=== PATIENT | female | born 1970 | race Caucasian/White ===

== ENCOUNTER 2016-07-25 10:59 | Emergency (ER) | payer OTHER ==
--- NOTE | ~2016-07-25 | CT2 ---
[facility] A Service of [facility] RADIOLOGY TEXT RESULTS PATIENT: SHAWN SERRANO LOCATION: [facility] : 70 UNIT #: [id number] AGE: [address]: Luther Cantu MD SEX: F ORDER DR: [id number] [facility]. [place], [place] [address] [id number] E MR#: [id number] Acc #: [id number] NAME: SHAWN SERRANO : 1970 SEX: F STUDY DATE/TIME: 07/25/2016 12:43 UNIT: [facility] ROOM: STUDY DESCRIPTION: CT Abd and Pelv W Cont Attending Physician: Luther Cantu M.D. Ordering Physician: Luther Cantu M.D. MEDICAL IMAGING REPORT This report is preliminary unless electronic signature is present EXAM CT abdomen and pelvis with contrast INDICATIONS Generalized abdominal pain and periumbilical pain for the past 2 days. PROCEDURE Contrast-enhanced CT of the abdomen and pelvis 100 mL of Isovue-[id number] COMPARISON None TECHNIQUE This CT exam was performed with one or more of the following radiation dose reduction techniques: automatic control, adjustment of mA and/or kV according to patient size, and iterative reconstruction. FINDINGS ABDOMEN WITH CONTRAST: The included lung bases are clear. No liver or splenic mass. Kidneys adrenal glands pancreas unremarkable. Previous cholecystectomy. The bowel loops are nondilated. There is long segment thickening of the distal small bowel. There is some reactive fluid in the adjacent mesentery and extending into the pelvis. No evidence for obstruction. PELVIS WITH CONTRAST: Small amount of fluid in the pelvis. No aggressive appearing bone lesion. IMPRESSION 1. Long segment thickening and inflammatory change of the distal small bowel. Findings could reflect inflammatory bowel disease or distal enteritis. [facility] A Service [facility] RADIOLOGY TEXT RESULTS PATIENT: SHAWN SERRANO LOCATION: [facility] : 70 UNIT #: [id number] AGE: [address]: Luther Cantu MD SEX: F ORDER DR: 2. Reactive fluid in the adjacent mesentery and extending into the pelvis. No convincing evidence for an organized abscess or perforation. Dictated by... Jimmy Bolden M.D. THIS IS AN ELECTRONICALLY VERIFIED REPORT Jimmy Bolden M.D. at 07/27/2016 7:14 AM NANCIE/ismael TD: 07/25/2016 17:36 JOB #: [id number] MEDICAL IMAGING REPORT Page 1 of 1 COPY
[~2016-07-25 10:59] MED LIST: ALBUTEROL 0.5ML INH; ASPIRIN81 MG PO; DOXYCYCLINE PO; HALDOL PO; HYDROCHLOROTHIA25 MG PO; KCL PO; LASIX PO; LIPITOR40 MG PO; LISINOPRIL PO; LISINOPRIL30 MG PO; LOPRESSOR PO; METFORMIN PO; NORVASC PO; PREDNISONE PO
[2016-07-25 11:18] LABS: BASOPHIL# 0.1 X10e3 (0-0.3); BASOPHIL% 0.3 % (0-2.5); EOSINOPHIL# 0.5 X10e3 (0-0.7); HEMATOCRIT 55.7 % (35.0-45.0); HEMOGLOBIN 18.4 gm/dL (12.0-16.0); LYMPHOCYTE# 1.8 X10e3 (1.0-3.5); LYMPHOCYTE% 11.1 % (17.0-45.0); MEAN CELL VOLUME 82.8 FL (83-96); MEAN CORPUSCULAR HEMOGLOBIN 27.4 PG (28-34); MEAN CORPUSCULAR HGB CONC 33.1 g/dL (30-36); MEAN PLATELET VOLUME 9.1 FL (6.5-11.5); MONOCYTE# 1.3 X10e3 (0-1.0); MONOCYTE% 8.1 % (3.0-12.0); NEUTROPHIL# 12.4 X10e3 (1.5-7.1); NEUTROPHIL% 77.5 % (40-75); PLATELET COUNT 310 X10e3 (140-420); RED BLOOD COUNT 6.72 X10e (3.90-5.30); RED CELL DISTRIBUTION WIDTH 13.5 % (11.0-15.5); WHITE BLOOD COUNT 15.9 X10e3 (4.0-10.5)
[2016-07-25 11:21] LABS: DIFF IND YES
[2016-07-25 11:48] LABS: ALBUMIN SERUM 3.6 g/dL (3.5-5.0); BILIRUBIN, DIRECT 0.4 mg/dL (0.0-0.2); BILIRUBIN,INDIRECT 1.2 mg/dL (0.0-0.9); BILIRUBIN,TOTAL 1.6 mg/dL (0.2-2.0); CALCIUM SERUM 8.8 mg/dL (8.4-10.2); CREATININE SERUM 1.1 mg/dL (0.6-1.4); GLOM FILT RATE Estimated 57.1 mL/min (>60); POTASSIUM 3.2 mmol/L (3.5-5.1); PROTEIN TOTAL SERUM 7.3 g/dL (6.0-8.3)
[2016-07-25 11:54] LABS: PLATELET ESTIMATE NORMAL (NORMAL)
[2016-07-25 12:36] LABS: URINE SOURCE CLEAN CATCH
[2016-07-25 12:44] LABS: URINE APPEARANCE CLOUDY; URINE BLOOD NEG (NEG); URINE COLOR DK YELLOW; URINE GLUCOSE NEG (NEG); URINE KETONE NEG (NEG); URINE LEUKOCYTE ESTERASE TRACE (NEG); URINE NITRATE NEG (NEG); URINE PROTEIN 2+ (NEG); URINE SPECIFIC GRAVITY 1.019 (1.003-1.035)
[2016-07-25 12:48] LABS: CULTURE INDICATED? YES; URINE BACTERIA AUWI 1+ (NEGATIVE); URINE SQUAMOUS EPITHELIAL CELL MOD /[HPF]
== END 2016-07-25 14:48 | disposition home or self-care (01) ==
LOC: CED 10:59
PROVIDERS: Emergency Medicine
DX: K52.9 Noninfective gastroenteritis and colitis, unspecified (principal); F17.210 Nicotine dependence, cigarettes, uncomplicated; Z88.5 Allergy status to narcotic agent; Z88.8 Allergy status to other drugs, medicaments and biological substances
CPT/HCPCS: 36415; 74177; 80048; 80076; 81003; 82150; 83690; 84703; 85025; 87086; 96361; 96374; 96375; 99284; J2270; J2405; Q9967